=== PATIENT | female | born 1975 | race Caucasian/White ===

== ENCOUNTER 2024-02-16 21:18 | Emergency (ER) | payer SELFPAY ==
[~2024-02-16 21:18] MED LIST: Amoxicillin/Potassium Clav 875 MG TAB ONE; Boostrix 0.5 ML (Tdap) VIAL (>/=7 yrs of age) ONE
== END 2024-02-16 21:50 | disposition home or self-care (01) ==
LOC: BURERS 21:18
DX: S61.551A Open bite of right wrist, initial encounter (principal); S61.451A Open bite of right hand, initial encounter; S91.051A Open bite, right ankle, initial encounter; F17.210 Nicotine dependence, cigarettes, uncomplicated; W55.01XA Bitten by cat, initial encounter; Y93.89 Activity, other specified; Z23 Encounter for immunization
CPT/HCPCS: 90471; 90715